=== PATIENT | female | born 1995 | race Caucasian/White ===

== ENCOUNTER → 2018-06-21 | Outpatient (CLI) | payer BC ==
[2016-12-14 17:49] VITALS: BMI 27.7
[~2018-06-21] MED LIST: ACET-1718 PO; FERR-41 PO; IBUP800T37 PO; PREN-127 PO
[2018-06-21 10:56] LABS: PLATELET COUNT, AUTOMATED 169 K/uL (150-450)
== END ==
LOC: LAB 10:23
PROVIDERS: ATTEND Student in an Organized Health Care Education/Training Program
DX: Z34.92 Encounter for supervision of normal pregnancy, unspecified, second trimester (principal); R82.79 Other abnormal findings on microbiological examination of urine
CPT/HCPCS: 36415; 81001; 85025; 86592; 86762; 86850; 86900; 86901; 87088; 87340

== ENCOUNTER → 2018-06-26 | Outpatient (CLI) | payer BC ==
[2016-12-14 17:49] VITALS: BMI 27.7
== END ==
LOC: LAB 10:50
PROVIDERS: ATTEND Student in an Organized Health Care Education/Training Program
DX: Z11.8 Encounter for screening for other infectious and parasitic diseases (principal); Z11.3 Encounter for screening for infections with a predominantly sexual mode of transmission
CPT/HCPCS: 87491; 87591

== ENCOUNTER → 2018-08-03 | Outpatient (CLI) | payer BC ==
[2016-12-14 17:49] VITALS: BMI 27.7
--- NOTE | 2018-08-03 13:16 | RADIOLOGY IMAGING REPORT ---
FACILITY: [facility] PATIENT NAME: Jimi Skinner : 1995 MR: [id number] V: [id number] EXAM DATE: ORDERING PHYSICIAN: LILIANA MARROQUIN TECHNOLOGIST: Location: [facility] [place] Patient: Jimi Skinner : 1995 Visit/Account:[id number] Date of Sevice: 08/03/2018 OB Ultrasound > 14 weeks with anatomic evaluation. 3-D imaging was performed by the technologis t according to protocols developed by the radiologists and the facility radiology staff. Representat jonh images are stored on PACS. HISTORY: Size and dates COMPARISON STUDIES: None available FINDINGS: Intrauterine gestations: one presentation: Vertex heart rate: 153 bpm Amniotic fluid index: 12.7 cm Largest amniotic fluid pocket 4.1 cm Placenta: Fundal without previa Uterus: gravid, otherwise normal Maternal adnexa: Unremarkable Cervix: long and closed Gestational Parameters: BPD: 4.7 cm 20 weeks, 3 days HC: 17.8 cm 20 weeks, 2 days AC: 16.0 cm 21 weeks, 2 days FL: 3.2 cm 20 weeks, 1 day Average ultrasound age (AUA): 20 weeks, 4 days SHREE: 12/17/2018 Estimated weight (EFW): 365 GM Anatomic Survey: Intracranial structures, 4-chamber heart, stomach, kidneys, urinary bladder, spine, 3-vessel cord and cord insertion are unremarkable. Two upper and two lower extremities visualized. IMPRESSION: 1. Single live intrauterine gestation; estimated ultrasound age 20 weeks, 4 days. 2. Unremarkable anatomic survey Report Dictated By: George Ahuja DO at 08/03/2018 1:08 PM Report E-Signed By: George Ahuja DO at 08/03/2018 1:13 PM WSN:[id number]
== END ==
LOC: RAD 08:07
PROVIDERS: ATTEND Student in an Organized Health Care Education/Training Program
DX: Z02.9 Encounter for administrative examinations, unspecified (principal)

== ENCOUNTER → 2018-10-12 | Outpatient (CLI) | payer MEDICAID ==
[2016-12-14 17:49] VITALS: BMI 27.7
[~2018-10-12] MED LIST changes: +FLU60VIA41 IM
[2018-10-12 09:01] LABS: PLATELET COUNT, AUTOMATED 135 K/uL (150-450)
== END ==
LOC: LAB 08:38
PROVIDERS: ATTEND Student in an Organized Health Care Education/Training Program
DX: Z34.92 Encounter for supervision of normal pregnancy, unspecified, second trimester (principal)
CPT/HCPCS: 36415; 85025

== ENCOUNTER → 2018-10-25 | Outpatient (CLI) | payer MEDICAID ==
[2016-12-14 17:49] VITALS: BMI 27.7
[2018-10-25 11:03] LABS: PLATELET COUNT, AUTOMATED 147 K/uL (150-450)
== END ==
LOC: LAB 10:15
PROVIDERS: ATTEND Advanced Practice Midwife
DX: O28.0 Abnormal hematological finding on antenatal screening of mother (principal)
CPT/HCPCS: 36415; 82040; 82247; 82310; 82374; 82435; 82565; 82947; 84075; 84132; 84155; 84295; 84450; 84460; 84520; 85025

== ENCOUNTER 2018-12-28 15:37 | Inpatient (IN) | payer MEDICAID ==
[~2018-12-28] VITALS: Ht 177.8 cm; Wt 79.4 kg
[2018-12-28 16:05] VITALS: Ht 177.8 cm; Wt 79.4 kg
--- NOTE | 2018-12-28 16:22 | Labor Progress Note ---
Labor Subjective Progress Notes Subjective Pt began contractions during the night and has been rakel irregularly up until 3 hours ago. Her thinks they are about 2-3 minutes apart now. She does not think her water has broken, but she is not sure as she did have some clear wetness at about 3:30pm. She is breathing and moaning through contractions with her Andres by her side who is very supportive. Feeling Movement?: Yes Vaginal Discharge/Fluid: Clear Fluid Labor Pain: Moderate Neurological: No Headache Eyes: No Visual Disturbances Labor Objective Fetus Estimated Weight(grams): 3000 Heart Tones: 125 Heart Tone Variabilty: Moderate FHT Decelerations: None FHT Category: I General Exam General Appearance: Alert/Awake/No Acute Distress ENT: Normal Neck: No Masses Cardiovascular: Normal Rhythm & Peripheral Pulses Respiratory: No Respiratory Distress, Clear to Auscultation Abdomen: Soft, Non-Tender, Non-Distended : Normal Musculoskeletal: No Weakness/Pain Extremities: No Cyanosis,Clubbing or Edema Integumentary: Skin Intact without Lesions or Rash Psychological: Alert & Oriented X3, Appropriate Mood & Affect Assessment and Plan Hospital Day: 1 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 BONI FAY CNM Dec 28, 2018 16:22
--- NOTE | 2018-12-28 16:22 | History & Physical ---
History of Present Illness Age of Patient: 23 : 2 Para or TPAL: 1 EDC per LMP: Dec 17, 2018 Estimated Gestational Age: 41.4 Chief Complaint Pt began contractions during the night and has been rakel irregularly up until 3 hours ago. Her thinks they are about 2-3 minutes apart now. She does not think her water has broken, but she is not sure as she did have some clear wetness at about 3:30pm. She is breathing and moaning through contractions with her Andres by her side who is very supportive. History Rubella Status: Immune Group B Strep Screen: Unknown (pt declines testing and treatment- informed consent done) Allergies: Coded Allergies: No Known Drug Allergies (Verified , 07/03/10) Family History: Patient reports no known family medical history. Med Rec Home Meds Reported Medications Vits W-Ca,Fe,Fa(<1MG) ( VITAMINS) 1 Each Tablet, 1 EACH PO DAILY, TAB 06/21/18 Review of Systems Constitutional: No Fever Eyes: No Vision Change, No Loss of Vision Gastrointestinal: No Nausea, No Vomiting, No Diarrhea Musculoskeletal: No Pain Psychiatric: No Depression, No Anxiety Exam General Exam General Apperance: Alert/Awake/No Acute Distress Neuro: No Gross deficits Eyes: Normal Extraocular Movement & Vison ENT: Normal Cardiovascular: Regular Rate and Rhythm Respiratory: No Respiratory Distress, Clear to Auscultation Abdomen: Soft, Non-Tender, Non-Distended Musculoskeletal: No Weakness/Pain Psychological: Alert & Oriented X3, Appropriate Mood & Affect Vaginal Discharge/Fluid?: Clear Fluid (looks like urine) Cervical Dialation: 9 Cervical Effacement (%): 100 Cervical Consistency: Soft Cervical Position: Anterior Station: 0 Presentation: Vertex Uterine Contractions(Q min): 3 Uterine Contraction Strength: Moderate UC Resting Tone: Soft Fetus Feeling Movement?: Yes Estimated Weight(grams): 3000 Heart Tones: 135 Heart Tone Variabilty: Moderate FHT Accelerations: 15X15 FHT Decelerations: None FHT Category: I Assessment and Plan Problems: (1) Normal labor Onset Date: ~ 12/28/2018 Status: Acute Assessment & Plan: 23 yo at 41 4/7 by LMP and first trimester US with an SHREE of 12/17/18 here today with spontaneous onset of labor. Labor State: Active Labor, showing good visual signs of labor progression. Will monitor for second stage well-being: Intermittent monitoring for low risk patient, CAT I Maternal Well-being: VSS, normotensive and afebrile PNL: GBS unknown (Pt declined testing and TX), A+, Rubella immune Pain Management: unmedicated and tolerating well Feed: Breast c/b: * Post dates * GBS unknown as pt declined testing Anticipate an NSVB, reevaluate in 1-2 hours or PRN BONI FAY CNM Dec 28, 2018 16:22
--- NOTE | 2018-12-28 17:01 | Labor Progress Note ---
Labor Subjective Progress Notes Subjective Pt is <10 min. Live born female . 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 Delivery of live born female infant at 1651. LILIANA MARROQUIN DO Dec 28, 2018 17:01
--- NOTE | 2018-12-28 17:49 | OB Delivery Note ---
Delivery Note Vaginal Delivery Type: Spont. Vaginal Delivery Delivery Date: Dec 28, 2018 Estimated Gestational Age(wks): 41.4 Delivery Anesthesia: Other (unmedicated) Infant Sex: Female [place] Apgars: 1 Minute, 5 Minute Estimated Blood Loss: 400 Notes: TD is a 23yo G2 no P2 at 41 4/7 with OOC on 12/28/18 at 1230 when she started to have regular contractions that were painful. Pt was admitted to the family care unit at 1530 in active labor. Cervical exam on admission was not necessary as pt was displaying signs of active labor. She had AROM at 1643 right before the per request for a clear moderate amount of fluid. Pt was GBS unknown as pt has declined GBS testing. and received. FHR was monitored by IA and was CAT I primarily throughout first stage. Pt utilized hydrotherapy primarily for pain management. Pt was completely dilated on 12/28/18 at 1640 and pt began pushing right after that. At 1651 pt had a NSVB of live female infant weighing 6lbs 15 oz. The head delivered spontaneously in the OA position and restituted KAYLEEN with no/nuchal c ord., but one loose body cord was noted and reduced after of the baby. The anterior shoulder was delivered a traumatically and the posterior shoulder followed. Body delivered easily. Face was wiped with nose and bulb suction and then placed on the maternal abdomen. The infant was dried and stimulated and noted to have a spontaneous cry and spontaneous movement of all 4 extremities. Cord was clamped X 2 by CNM after pulsations ceased and cut by patient's spouse. Mother was in SF position. At 1705 the placenta and membranes delivered spontaneous and intact with a 3 vessel cord after gentle downward traction and maternal push. 10 units of IM Pitocin was given to firm the uterus and given shortly after placenta delivery when increased bleeding was noted. Upon inspection of the perineum it was found to be intact. Hemostasis observed. No repair necessary. EBL 400cc with fundus firm with moderate bleeding at which point 800mcg of Cytotec was given rectally. Mom and baby were left in stable condition. initiated with great success. I personally examined the patient and there are no unintended foreign objects in the vagina and the sponge counts were all correct. Heena Hickey CNM was present throughout the entire delivery as well as Dr. Subhash Marks 45 minutes after delivery there was noted to another 376cc of blood loss, at which point another 10u of IM Pitocin was given. At 2 hours PP the bleeding is minimal with the uterus firm 1 below the U. Plant Maintenance Engineer in Attendence: HEENA Brown CNM Dec 28, 2018 17:49
[2018-12-28] MEDS ORDERED: HYDROCORTISONE 2.5% CR 30GM TB PR PRN (17:50)
[2018-12-28] MEDS ORDERED: MAGNESIUM HYDROXIDE* 30ML UDCP PO PRN (17:50)
[2018-12-28] MEDS ORDERED: ACETAMINOPHEN 325 MG TAB PO PRN (17:50)
[2018-12-28] MEDS ORDERED: LANOLIN OINT 7 GM TUBE TP PRN (17:50)
[2018-12-28] MEDS ORDERED: APAP/HYDROCODONE 325/5 TAB PO PRN (17:50)
[2018-12-28] MEDS ORDERED: GLYCERIN/WITCH HAZEL LEAF 1 PK TP PRN (17:50)
[2018-12-28] MEDS ORDERED: BENZOCAINE 20% 60 ML BTL TP PRN (17:50)
[2018-12-28] MEDS: IBUPROFEN 800 MG TAB PO SCH (18:03)
[2018-12-28] MEDS ORDERED: OXYTOCIN 10 UNIT/ML SDV IM ONE ×2 (18:05)
[2018-12-28] MEDS ORDERED: MISOPROSTOL 200 MCG TAB PR ONE (18:05)
[2018-12-28 19:02] VITALS: BP 103/67
[2018-12-28] MEDS: DOCUSATE CALCIUM 240 MG CAP PO SCH (21:00)
[2018-12-28] MEDS ORDERED: LR(*) 1000 ML BAG 1,000 ML ONE (21:30)
[2018-12-28 23:05] VITALS: BP 108/71
[2018-12-29] MEDS: IBUPROFEN 800 MG TAB PO SCH ×3 (02:33→18:51)
[2018-12-29 02:45] VITALS: BP 107/78
[2018-12-29 07:50] VITALS: BP 103/70
[2018-12-29] MEDS: DOCUSATE CALCIUM 240 MG CAP PO SCH ×2 (09:13→22:02)
[2018-12-29 11:36] VITALS: BP 99/67
--- NOTE | 2018-12-29 12:48 | OB/GYN Progress Note ---
OB Subjective Progress Notes Subjective TD is doing well this am s/p for a female yesterday evening. She is having moderate cramping with which she has been taking ibuprofen every 8 hours with fair effect. Would prefer to not take anything stronger but will take tylenol. Baby is doing well and BF is going great. Denies DAVID, vision changes, RUQ or epigastric pain, and breast pain. No calf pain or tenderness. GI: POS Flatus; NEG Nausea, NEG Vomiting : Voiding Well, Vaginal Bleeding, Scant Pain: Moderate Neurological: No Headache Eyes: No Visual Disturbances OB Objective Physical Exam Vital Signs Date Time Temp Pulse Resp B/P (MAP) Pulse Ox O2 Delivery O2 Flow Rate FiO2 12/29/18 11:36 97.7 82 16 99/67 (78) 95 Room Air Intake and Output 12/29/18 07:00 Output Total 100 ml Balance -100 ml Output Urine Total 100 ml # Voids 3 General Appearance: Alert/Awake/No Acute Distress Neurological: No Gross deficits Eyes: Normal Extraocular Movement & Vison ENT: Normal Neck: No Masses Cardiovascular: Normal Rhythm & Peripheral Pulses Respiratory: No Respiratory Distress, Clear to Auscultation Abdomen: Soft, Non-Tender, Non-Distended, RUQ Non-Tender : Normal Musculoskeletal: No Weakness/Pain Extremities: No Cyanosis,Clubbing or Edema Integumentary: Skin Intact without Lesions or Rash Psychological: Alert & Oriented X3, Appropriate Mood & Affect Result Diagram: 12/29/18 0610 Assessment and Plan Post Day: 1 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 Recommended to take Tylenol with the ibuprofen. Will plan to discharge home tomorrow when baby can be dc'd. BONI FAY CNM Dec 29, 2018 12:48
[2018-12-29 16:30] VITALS: BP 103/72
[2018-12-29 20:00] VITALS: BP 98/70
[2018-12-30] VITALS: BP 101/68
[2018-12-30] MEDS: IBUPROFEN 800 MG TAB PO SCH ×2 (02:29→09:29)
[2018-12-30 02:32] VITALS: BP 97/67
[2018-12-30 08:46] VITALS: BP 104/75
[2018-12-30] MEDS: DOCUSATE CALCIUM 240 MG CAP PO SCH (09:30)
--- NOTE | 2018-12-30 10:03 | OB/GYN Discharge Summary ---
Discharge Summary Reason for Hosp/Final Diag: (1) Normal labor Onset Date: ~ 12/28/2018 Status: Resolved (2) (normal spontaneous vaginal delivery) Status: Resolved (3) care and examination immediately after delivery Onset Date: ~ 12/28/2018 Status: Acute Hospital Course & Plan: Pt is progressing well and having no issues. She is taking Tylenol with the ibuprofen and that it helped a lot. Her bleeding is like a normal period now and the cramping has lessened. is going well and she has a good latch. She denies fever, chills, DAVID, vision changes, abd pain, calf tenderness, breast tenderness and anxiety and depressive symptoms. She feels ready to go home. Peds will see baby Tanya soon and and she should be dc'd too. Lates Vital Signs Vital Signs Date Time Temp Pulse Resp B/P (MAP) Pulse Ox O2 Delivery O2 Flow Rate FiO2 12/30/18 08:46 98.2 90 18 104/75 (85) 95 Room Air Weight (Pounds): 175 Result Diagram: 12/29/18 0610 Condition: Improved Discharge: Home Home Meds Active Scripts Ibuprofen (IBUPROFEN) 800 Mg Tablet, 1 TAB PO Q8H for cramping, #30 TAB 0 Refills TAKE WITH FOOD EVERY 8 HOURS Prov:BONI FAY CNM 12/30/18 Reported Medications Vits W-Ca,Fe,Fa(<1MG) ( VITAMINS) 1 Each Tablet, 1 EACH PO DAILY, TAB 06/21/18 Follow up Referrals: HEALTH UNDERWRITER - In Two Weeks @ [facility] with BONI FAY CNM Follow up in: 2 wks PO Discharge Diet: As Tolerates Discharge Activity: As Tolerates, Pelvic Rest Special Instructions: Please take the next to weeks to get to know you baby and rest. Have family and friends do the restaurant assistant and cooking. You deserve this time to be nurtured as you have been through a lot these past 9 months! I will see you in 2 weeks, but please call sooner if you have concerning symptoms that we discussed. CHEN Fitzgerald ELIZABETH M CNM Dec 30, 2018 10:03
[2018-12-30] MEDS ORDERED: IBUP800T37 PO (10:04)
== END 2018-12-30 13:00 | disposition home or self-care (01) | DRG 807 ==
LOC: OB 15:37
PROVIDERS: ADMIT Obstetrics & Gynecology; ATTEND Obstetrics & Gynecology
PROC: 10E0XZZ Delivery of Products of Conception, External Approach (ICD-10-PCS; principal; 2018-12-28)
DX: O48.0 Post-term pregnancy (principal); Z37.0 Single live birth; O69.82X0 Labor and delivery complicated by other cord entanglement, without compression, not applicable or unspecified; Z3A.41 41 weeks gestation of pregnancy
CPT/HCPCS: 36415; 85027; 86703; J2590